=== PATIENT | male | born 1980 | race Caucasian/White ===

== ENCOUNTER 2019-08-25 02:00 | Emergency (ER) | payer OTHER ==
[2019-08-25 02:22] VITALS: BP 112/72; PULSE 95; TEMP 97.1; BMI 69.7
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
== END 2019-08-25 03:15 | disposition home or self-care (01) ==
LOC: JER 02:00
DX: S89.81XA Other specified injuries of right lower leg, initial encounter (principal); S39.012A Strain of muscle, fascia and tendon of lower back, initial encounter; Y35.811A Legal intervention involving manhandling, law enforcement official injured, initial encounter; Y93.89 Activity, other specified; Y92.414 Local residential or business street as the place of occurrence of the external cause; Y99.0 Civilian activity done for income or pay
CPT/HCPCS: 99281-25

== ENCOUNTER 2019-10-14 02:20 | Emergency (ER) | payer OTHER ==
[2019-10-14 02:43] VITALS: BP 129/93; PULSE 92; TEMP 97.3; BMI 28.8
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
== END 2019-10-14 03:29 | disposition home or self-care (01) ==
LOC: JER 02:20
DX: S89.81XA Other specified injuries of right lower leg, initial encounter (principal); S89.82XA Other specified injuries of left lower leg, initial encounter; Y35.811A Legal intervention involving manhandling, law enforcement official injured, initial encounter; Y93.89 Activity, other specified; Y92.89 Other specified places as the place of occurrence of the external cause; Y99.0 Civilian activity done for income or pay
CPT/HCPCS: 99283-25

== ENCOUNTER 2021-11-13 15:30 | Emergency (ER) | payer OTHER ==
[2021-11-13 16:46] VITALS: BP 124/77; PULSE 87; TEMP 98.8; BMI 29.5
== END 2021-11-13 18:08 | disposition home or self-care (01) ==
LOC: FER 15:30
DX: M79.641 Pain in right hand (principal)
CPT/HCPCS: 73130-TC-RT-FY; 99284-25

== ENCOUNTER 2022-02-22 08:58 | Emergency (ER) | payer OTHER ==
[2022-02-22] MEDS ORDERED: IBUPROFEN 600 MG TABLET (FP) PO ONE ×2 (09:08→09:10)
[2022-02-22 09:13] VITALS: BP 118/80; PULSE 100; TEMP 97.6; BMI 30.2
== END 2022-02-22 09:35 | disposition home or self-care (01) ==
LOC: FER 08:58
DX: M25.511 Pain in right shoulder (principal)
CPT/HCPCS: 73030-TC-RT-FY; 99283-25

== ENCOUNTER 2022-12-19 15:33 | Emergency (ER) | payer OTHER ==
[2022-12-19 16:01] VITALS: BP 139/83; PULSE 100; RESP 18; TEMP 98.2; BMI 29.5
== END 2022-12-19 16:00 | disposition home or self-care (01) ==
LOC: FER 15:33
DX: M25.562 Pain in left knee (principal); M25.561 Pain in right knee; M54.50 Low back pain, unspecified
CPT/HCPCS: 99281-25